=== PATIENT | male | born 1985 ===

== ENCOUNTER 2019-09-28 10:18 | Emergency (ER) | payer SELFPAY ==
--- NOTE | 2019-09-28 10:54 | UC ---
Lower Extremity/Ankle HPI - HPI Summary HPI Summary: Mr. Agee injury to his left ankle/foot on Saturday when a cow ran past him. He has had pain with ambulation since along with swelling and ecchymosis. - History of Current Complaint Chief Complaint: UCLowerExtremity Stated Complaint: ANKLE INJURY Time Seen by Provider: 09/28/19 10:45 Hx Obtained From: Patient Onset/Duration: Sudden Onset, Lasting Days Severity Initially: Severe Severity Currently: Severe Pain Intensity: 10 Aggravating Factor(s): Standing, Ambulation Alleviating Factor(s): Nothing Able to Bear Weight: Yes - not well - Allergies/Home Medications Allergies/Adverse Reactions: Allergies Allergy/AdvReac Type Severity Reaction Status Date / Time No Known Allergies Allergy Verified 09/28/19 10:43 Home Medications: Home Medications NK [No Home Medications Reported] 09/28/19 [History Confirmed 09/28/19] PMH/Surg Hx/FS Hx/Imm Hx Previously Healthy: Yes - Surgical History Surgical History: None - Social History Alcohol Use: None Substance Use Type: None Smoking Status (MU): Never Smoked Tobacco Review of Systems All Other Systems Reviewed And Are Negative: Yes Motor: Positive: Decreased ROM Neurovascular: Positive: Negative Musculoskeletal: Positive: Decreased ROM, Edema Neurological: Positive: Negative Physical Exam - Summary Physical Exam Summary: He is nontoxic in appearance with stable vital signs Triage Information Reviewed: Yes Appearance: Well-Appearing, Pain Distress Vital Signs: Initial Vital Signs Temp 98.9 F 09/28/19 10:37 Pulse 84 09/28/19 10:37 Resp 16 09/28/19 10:37 BP 137/92 09/28/19 10:37 Pulse Ox 100 09/28/19 10:37 Vital Signs Reviewed: Yes Musculoskeletal: Positive: Edema @ - Left lateral ankle and foot. There is no ligamentous laxity. Skin Exam: Other - Ecchymosis to the left lateral foot Diagnostics - Radiology left foot Radiology Interpretation Completed By: Radiologist - No fracture left ankle Radiology Interpretation Completed By: Radiologist - No fracture Lower Extremity Course/Dx - Course Course Of Treatment: There is no acute bony injury. He is obviously swollen and tender. Place him in a cam boot with follow-up as needed - Differential Dx/Diagnosis Provider Diagnosis: Left ankle sprain Discharge ED - Sign-Out/Discharge Documenting (check all that apply): Patient Departure All imaging exams completed and their final reports reviewed: Yes - Discharge Plan Condition: Stable Disposition: HOME Patient Education Materials: Ankle Sprain (ED), Foot Contusion (ED), Ibuprofen (By mouth) Print Language: NAURUAN Forms: *Work Release Referrals: No Primary Care Phys,NOPCP [Primary Care Provider] - Rich Bowles MD [Medical Doctor] - Additional Instructions: If not significantly improved in 2-3 days please follow up with Dr. Bowles. - Billing Disposition and Condition Condition: STABLE Disposition: Home
== END 2019-09-28 11:30 | disposition home or self-care (01) ==
LOC: UCEAST 10:18
DX: S93.402A Sprain of unspecified ligament of left ankle, initial encounter (principal); X50.0XXA Overexertion from strenuous movement or load, initial encounter; Y93.02 Activity, running; Y92.9 Unspecified place or not applicable
CPT/HCPCS: 99201; G0463